=== PATIENT | male | born 1955 | race Caucasian/White ===

== ENCOUNTER 2021-02-12 11:46 | Emergency (ER) | payer OTHER ==
--- NOTE | 2021-02-12 12:33 | RAD REPORT ---
EXAM DESCRIPTION: CT - Head Brain Wo Cont - 02/12/2021 12:27 pm CLINICAL HISTORY: DIZZINESS COMPARISON: No comparisons TECHNIQUE: Axial 5 mm thick images of the head were obtained without IV contrast. All CT scans are performed using dose optimization technique as appropriate and may include automated exposure control or mA/KV adjustment according to patient size. FINDINGS: No intracranial hemorrhage, mass, edema or shift of mid-line structures. No acute cortical based infarction changes seen. No abnormal extra-axial fluid collections. Ventricles are normal. No significant atrophy. Only trace amounts of chronic ischemic change are evident on CT imaging. Mastoid air cells and visualized portions of the paranasal sinuses are clear. No acute bony findings. IMPRESSION: Negative non-contrast CT head examination for acute finding. Ongoing concerns for acute CVA can be addressed with MR imaging.
[2021-02-12] MEDS ORDERED: NA CHLORIDE 0.9% 1,000 ML ONE (13:07)
[2021-02-12 13:11] LABS: Absolute Lymphocytes (CBC) 1.1 K/uL (0.7-4.9); Basophils % 0.8 % (0-1.3); Hematocrit 46.6 % (39.6-49.0); Lymphocytes % 27.9 % (15.3-44.8); MPV 7.8 fL (7.6-11.3)
[2021-02-12] MEDS ORDERED: NA CHLORIDE 0.9% 500 ML ONE (13:14)
[2021-02-12 13:28] LABS: ALT/SGPT 46 U/L (12-78); AST/SGOT 31 U/L (15-37); Albumin 3.7 g/dL (3.4-5.0); Alkaline Phosphatase 53 U/L (45-117); BUN Blood Urea Nitrogen 16 mg/dL (7-18); Bicarbonate 25 mmol/L (21-32); Bilirubin Direct 0.1 mg/dL (0-0.2); Bilirubin Total 0.7 mg/dL (0.2-1.0); Glucose Level 103 mg/dL (74-106); Magnesium 2.3 mg/dL (1.8-2.4); NT PRO-BNP 205 pg/mL (<125); Protein, Total 7.1 g/dL (6.4-8.2); Protime INR 0.92; Sodium Level 139 mmol/L (136-145); Troponin (Emerg Dept Use Only) < 0.02 ng/mL (0.0-0.045)
[2021-02-12 13:38] LABS: Urine Blood Trace-intact (Negative); Urine Glucose Negative (Negative); Urine Protein Trace (Negative); Urine Specific Gravity 1.015 (1.005-1.030); Urine pH 7.5 (5.0-7.0)
--- NOTE | 2021-02-12 13:44 | RAD REPORT ---
EXAM DESCRIPTION: RAD - Chest Single View - 02/12/2021 1:28 pm CLINICAL HISTORY: COUGH COMPARISON: None TECHNIQUE: AP portable chest image was obtained 02/12/2021 1:28 pm . FINDINGS: No focal mass or consolidation. No significant failure or volume overload seen. Interstitial pattern is prominent mostly due to under penetrated film technique and portable imaging. Patient may have a mild fibrotic lung pattern. Minimal edema or infiltrate could be masked. Heart and vasculature are normal. No measurable pleural effusion and no pneumothorax. No acute bony abnormality seen. No acute aortic findings suspected. IMPRESSION: No acute cardiopulmonary finding identifiable.
--- NOTE | 2021-02-12 14:43 | EDPHYS ---
Physician Documentation [facility] Name: Zion Rankin Age: 65 yrs Sex: Male : 1955 Arrival Date: 02/12/2021 Time: 11:47 Bed 30 Private MD: ED Physician Turner Aguilar HPI: 02/12 14:30 This 65 yrs old Male presents to ER via Ambulatory with complaints of R/O carlos Stroke, Irregular Pulse. 14:30 The patient presents with a history of irregular heart beat. Context: The symptoms carlos occur at rest. Onset: The symptoms/episode began/occurred this morning. Duration: The patient or guardian reports a single episode, that is still ongoing. Modifying factors: The symptoms are aggravated by nothing. The symptoms are alleviated by. weak, shaky, no pain , both legs weak. Associated signs and symptoms: Pertinent positives: cough, lightheadedness. Severity of symptoms: At their worst the symptoms were mild in the emergency department the symptoms are unchanged. Historical: - Allergies: 11:54 No Known Allergies; ll1 - PMHx: 11:54 A fib; R. arthritis; Hypertensive disorder; ll1 - PSHx: 11:54 None; ll1 - Immunization history:: Client reports receiving the 2nd dose of the Covid vaccine. - Social history:: Smoking status: Patient denies any tobacco usage or history of. - Family history:: not pertinent. - Code Status:: Full code. ROS: 14:30 Constitutional: Negative for fever, chills, and weight loss, Eyes: Negative for injury, carlos pain, redness, and discharge, ENT: Negative for injury, pain, and discharge, Neck: Negative for injury, pain, and swelling, Cardiovascular: Negative for chest pain, palpitations, and edema, Respiratory: Negative for shortness of breath, cough, wheezing, and pleuritic chest pain, Abdomen/GI: Negative for abdominal pain, nausea, vomiting, diarrhea, and constipation, Back: Negative for injury and pain, : Negative for injury, bleeding, discharge, and swelling, MS/Extremity: Negative for injury and deformity, Skin: Negative for injury, rash, and discoloration, Psych: Negative for depression, anxiety, suicide ideation, homicidal ideation, and hallucinations, Allergy/Immunology: Negative for hives, rash, and allergies, Endocrine: Negative for neck swelling, polydipsia, polyuria, polyphagia, and marked weight changes, Hematologic/Lymphatic: Negative for swollen nodes, abnormal bleeding, and unusual bruising. 14:30 Neuro: Positive for weakness. Exam: 14:30 Constitutional: This is a well developed, well nourished patient who is awake, alert, carlos and in no acute distress. Head/Face: Normocephalic, atraumatic. Eyes: Pupils equal round and reactive to light, extra-ocular motions intact. Lids and lashes normal. Conjunctiva and sclera are non-icteric and not injected. Cornea within normal limits. Periorbital areas with no swelling, redness, or edema. ENT: Nares patent. No nasal discharge, no septal abnormalities noted. Tympanic membranes are normal and external auditory canals are clear. Oropharynx with no redness, swelling, or masses, exudates, or evidence of obstruction, uvula midline. Mucous membranes moist. Neck: Trachea midline, no thyromegaly or masses palpated, and no cervical lymphadenopathy. Supple, full range of motion without nuchal rigidity, or vertebral point tenderness. No Meningismus. Chest/axilla: Normal chest wall appearance and motion. Nontender with no deformity. No lesions are appreciated. Cardiovascular: Regular rate and rhythm with a normal S1 and S2. No gallops, murmurs, or rubs. Normal PMI, no JVD. No pulse deficits. Respiratory: Lungs have equal breath sounds bilaterally, clear to auscultation and percussion. No rales, rhonchi or wheezes noted. No increased work of breathing, no retractions or nasal flaring. Abdomen/GI: Soft, non-tender, with normal bowel sounds. No distension or tympany. No guarding or rebound. No evidence of tenderness throughout. Back: No spinal tenderness. No costovertebral tenderness. Full range of motion. Male : Normal genitalia with no discharge or lesions. Skin: Warm, dry with normal turgor. Normal color with no rashes, no lesions, and no evidence of cellulitis. Vital Signs: 11:52 BP 150 / 105; Pulse 117; Resp 18; Temp 98.1(O); Pulse Ox 98% ; Weight 102.06 kg; Height ll1 5 ft. 10 in. (177.80 cm); Pain 8/10; 12:14 BP 154 / 114; Pulse 110; Resp 24; Temp 98.0; Pulse Ox 97% on R/A; kh1 11:52 Body Mass Index 32.28 (102.06 kg, 177.80 cm) ll1 MDM: 12:14 Patient medically screened. [facility] 15:50 Differential diagnosis: arrythmia. Data reviewed: vital signs, nurses notes, lab test carlos result(s), EKG, radiologic studies, CT scan, plain films. Data interpreted: case monitor: rate is 89 beats/min, rhythm is atrial fibrillation, Pulse oximetry: on room air is 97 %. Test interpretation: by ED physician or midlevel provider: ECG, plain radiologic studies. Counseling: I had a detailed discussion with the patient and/or guardian regarding: the historical points, exam findings, and any diagnostic results supporting the discharge/admit diagnosis, lab results, radiology results, the need for outpatient follow up, for definitive care, a medical scheduler. 15:51 Physician consultation: Dr Kemp add elquis 5mg 2 bid x 1 week, see him in 1 week, carlos continue all other meds. 02/12 12:15 Order name: Basic Metabolic Panel; Complete Time: 14:38 [facility] 02/12 12:15 Order name: CBC with Diff; Complete Time: 14:38 [facility] 02/12 12:15 Order name: LFT's; Complete Time: 14:38 [facility] 02/12 12:15 Order name: Magnesium; Complete Time: 14:38 [facility] 02/12 12:15 Order name: NT PRO-BNP; Complete Time: 14:38 [facility] 02/12 12:15 Order name: PT-INR; Complete Time: 14:38 [facility] 02/12 12:15 Order name: Troponin (emerg Dept Use Only); Complete Time: 14:38 [facility] 02/12 12:15 Order name: XRAY Chest (1 view); Complete Time: 14:38 [facility] 02/12 12:15 Order name: TSH; Complete Time: 14:38 [facility] 02/12 12:15 Order name: CT Head Brain wo Cont; Complete Time: 14:38 [facility] 02/12 13:37 Order name: Urine Dipstick-Ancillary; Complete Time: 14:38 EDSD 02/12 14:27 Order name: SARS-COV-2 RT PCR; Complete Time: 14:38 [facility] 02/12 14:40 Order name: Digoxin; Complete Time: 15:52 [facility] 02/12 12:15 Order name: EKG; Complete Time: 12:16 [facility] 02/12 12:15 Order name: Cardiac monitoring; Complete Time: 12:48 [facility] 02/12 12:15 Order name: EKG - Nurse/Tech [facility] 02/12 12:15 Order name: IV Saline Lock; Complete Time: 12:48 [facility] 02/12 12:15 Order name: Labs collected and sent; Complete Time: 12:48 [facility] 02/12 12:15 Order name: O2 Per Protocol; Complete Time: 12:48 [facility] 02/12 12:15 Order name: O2 Sat Monitoring; Complete Time: 12:48 [facility] 02/12 12:15 Order name: Urine Dipstick-Ancillary (obtain specimen) carlos Administered Medications: 12:48 Drug: NS 0.9% 500 ml Route: IV; Rate: bolus; Site: right antecubital; [facility] 17:06 Follow up: Response: No adverse reaction; IV Status: Completed infusion kg 13:41 Drug: NS 0.9% 1000 ml Route: IV; Rate: 125 ml/hr; Site: right antecubital; 1 17:06 Follow up: Response: No adverse reaction; IV Status: Completed infusion kg 15:17 CANCELLED (Duplicate Order): Diltiazem 120 mg PO once [facility] 16:24 Drug: Lovenox (enoxaparin) 100 mg Route: Sub-Q; Site: abdomen; 1 17:06 Follow up: Response: No adverse reaction kg 16:24 Drug: Eliquis (apixaban) 5 mg Route: PO; kh1 17:05 Follow up: Response: No adverse reaction kg 16:25 Not Given (Patient Refused): Digoxin 0.25 mg IVP once 1 Disposition Summary: 02/12/21 15:53 Discharge Ordered Location: Home(02/12/21 15:53) carlos Problem: new(02/12/21 15:53) carlos Symptoms: have improved(02/12/21 15:53) carlos Condition: Stable(02/12/21 15:53) carlos Diagnosis - Weakness(02/12/21 15:53) carlos - Unspecified atrial fibrillation carlos Followup: carlos - With: Private Physician - When: 2 - 3 days - Reason: Recheck today's complaints, Continuance of care, Re-evaluation by your physician Discharge Instructions: - Discharge Summary Sheet carlos - Atrial Fibrillation carlos - Weakness carlos - Weakness, [id number] carlos - Atrial Fibrillation, [id number] carlos Forms: - Medication Reconciliation Form carlos - Thank You Letter carlos - Antibiotic Education carlos - Prescription Opioid Use carlos Prescriptions: - Eliquis 5 mg Oral tablet - take 2 tablet by ORAL route 2 times per day for 7 days; 14 tablet; Refills: 0, carlos Product Selection Permitted Signatures: Dispatcher [employer] EDMS Turner Aguilar MD MD cha Lewis, Lynsay, RN RN ll1 Yifan, Samia 1 Estephania Murrieta RN kg Corrections: (The following items were deleted from the chart) 13:24 12:16 CORONAVIRUS+MR.LAB.BRZ ordered. EDSD EDMS 15:13 14:42 Observation carlos carlos 15:13 14:42 GarveyCristina raootoniel carlos carlos 15:13 14:42 Telemetry/MedSurg (observation) carlos carlos 15:13 14:42 Fair carlos carlos 15:13 14:42 new carlos carlos 15:13 14:42 have improved carlos carlos 15:13 14:42 Standard carlos carlos 15:13 14:42 carlos carlos 15:13 14:42 Weakness carlos carlos 15:13 14:42 Paroxysmal atrial fibrillation carlos carlos 15:13 14:42 Syncope Near carlos carlos 15:13 14:42 Essential (primary) hypertension carlos carlos 15:17 14:40 Diltiazem 120 mg PO once ordered. carlos carlos
--- NOTE | 2021-02-12 14:43 | ER ---
Nurse's Notes [facility] Name: Zion Rankin Age: 65 yrs Sex: Male : 1955 Arrival Date: 02/12/2021 Time: 11:47 Bed 30 Private MD: Diagnosis: Weakness;Unspecified atrial fibrillation Presentation: 02/12 11:52 Chief complaint: Patient states: Fast HR, shaky, palpitations started at 0530 am. Went ll1 to Dr. Hernandez , was sent over for eval. Both legs feel weak. Coronavirus screen: Client denies travel out of the [place] in the last 14 days. At this time, the client does not indicate any symptoms associated with coronavirus-19. Ebola Screen: Patient denies travel to an Ebola-affected area in the 21 days before illness onset. Initial Sepsis Screen: Does the patient meet any 2 criteria? HR > 90 bpm. No. Patient's initial sepsis screen is negative. Does the patient have a suspected source of infection? No. Patient's initial sepsis screen is negative. Risk Assessment: Do you want to hurt yourself or someone else? Patient reports no desire to harm self or others. Onset of symptoms was February 12, 2021. 11:52 Method Of Arrival: Ambulatory [facility] 11:52 Acuity: SHAHEEN 2 ll1 Triage Assessment: 12:14 General: Appears in no apparent distress. Behavior is calm, cooperative. Pain: [facility] Complains of pain in back Pain does not radiate. Pain currently is 5 out of 10 on a pain scale. Cardiovascular: Reports fatigue, lightheadedness. Historical: - Allergies: 11:54 No Known Allergies; ll1 - PMHx: 11:54 A fib; R. arthritis; Hypertensive disorder; ll1 - PSHx: 11:54 None; ll1 - Immunization history:: Client reports receiving the 2nd dose of the Covid vaccine. - Social history:: Smoking status: Patient denies any tobacco usage or history of. - Family history:: not pertinent. - Code Status:: Full code. Screenin:17 Abuse screen: Denies threats or abuse. Nutritional screening: No deficits noted. [facility] Tuberculosis screening: No symptoms or risk factors identified. Fall Risk IV access (20 points). Assessment: 12:17 General: Appears in no apparent distress. Pain: Pain began gradually, 2-3 days ago. [facility] 14:00 Reassessment: Patient appears in no apparent distress at this time. No changes from [facility] previously documented assessment. Patient and/or family updated on plan of care and expected duration. Pain level reassessed. Vital Signs: 11:52 BP 150 / 105; Pulse 117; Resp 18; Temp 98.1(O); Pulse Ox 98% ; Weight 102.06 kg; Height ll1 5 ft. 10 in. (177.80 cm); Pain 8/10; 12:14 BP 154 / 114; Pulse 110; Resp 24; Temp 98.0; Pulse Ox 97% on R/A; kh1 11:52 Body Mass Index 32.28 (102.06 kg, 177.80 cm) 1 Vitals: 12:17 Cardiac Rhythm Assessment Atrial fibrillation. [facility] ED Course: 11:47 Patient arrived in ED. ds1 11:54 Triage completed. ll1 11:54 Arm band placed on. 1 12:14 Samia Saha is Primary Nurse. 1 12:14 Turner Aguilar MD is Attending Physician. [facility] 12:17 Patient has correct armband on for positive identification. Bed in low position. Call [facility] light in reach. Side rails up X 1. retail buyer on. Pulse ox on. NIBP on. 12:17 No provider procedures requiring assistance completed. Patient maintains SpO2 [facility] saturation greater than 95% on room air. 12:27 CT Head Brain wo Cont In Process Unspecified. EDMS 12:48 TSH Sent. 1 12:48 Basic Metabolic Panel Sent. 1 12:48 CBC with Diff Sent. 1 12:48 LFT's Sent. kh1 12:48 Magnesium Sent. kh1 12:49 NT PRO-BNP Sent. kh1 12:49 PT-INR Sent. kh1 12:49 Troponin (emerg Dept Use Only) Sent. 1 13:28 XRAY Chest (1 view) In Process Unspecified. EDMS 14:40 Juancarlos Garvey MD is Hospitalizing Provider. [facility] 17:08 IV discontinued, intact, bleeding controlled, No redness/swelling at site. Pressure kg dressing applied. Administered Medications: 12:48 Drug: NS 0.9% 500 ml Route: IV; Rate: bolus; Site: right antecubital; kh1 17:06 Follow up: Response: No adverse reaction; IV Status: Completed infusion kg 13:41 Drug: NS 0.9% 1000 ml Route: IV; Rate: 125 ml/hr; Site: right antecubital; kh1 17:06 Follow up: Response: No adverse reaction; IV Status: Completed infusion kg 15:17 CANCELLED (Duplicate Order): Diltiazem 120 mg PO once carlos 16:24 Drug: Lovenox (enoxaparin) 100 mg Route: Sub-Q; Site: abdomen; kh1 17:06 Follow up: Response: No adverse reaction kg 16:24 Drug: Eliquis (apixaban) 5 mg Route: PO; kh1 17:05 Follow up: Response: No adverse reaction kg 16:25 Not Given (Patient Refused): Digoxin 0.25 mg IVP once kh1 Outcome: 14:42 Decision to Hospitalize by Provider. carlos 15:53 Discharge ordered by MD. carlos 17:07 Discharged to home ambulatory, with family. kg 17:07 Condition: good 17:07 Discharge instructions given to patient, family, Instructed on discharge instructions, follow up and referral plans. Demonstrated understanding of instructions, follow-up care, medications, Prescriptions given X 1. 17:08 Patient left the ED. kg Signatures: Dispatcher [employer] EDMS Turner Augilar MD MD cha Sanford, Demi ds1 Hugo Zuniga, RN RN ll1 Estephania Murrieta RN RN kg Samia Saha [facility] Corrections: (The following items were deleted from the chart) 13:24 12:47 CORONAVIRUS+MR.LAB.BRZ drawn and sent. [facility] EDNC
[2021-02-12] MEDS ORDERED: ENOXAPARIN 100 MG/ML SYR SQ ONE (16:43)
[2021-02-12] MEDS ORDERED: APIXABAN 5 MG TABLET ONE (16:43)
[2021-02-12 17:25] VITALS: BP 154/114; TEMP 98; O2SAT 97
--- NOTE | 2021-02-13 11:28 | EKG ---
Test Date: 2021-02-12 Test Time: 14:33:54 Vendor Quality Supervisor: TARIK MEASUREMENT RESULTS: Intervals: Rate: 89 NE: QRSD: 86 QT: 356 QTc: 433 [place]: P: NE: QRS: 28 T: 44 INTERPRETIVE STATEMENTS: Atrial fibrillation Abnormal ECG Compared to ECG 03/16/2005 10:28:00 Sinus rhythm no longer present Electronically Signed On 02-13-21 11:26:42 CDT by Andres Kim
== END 2021-02-12 17:08 | disposition home or self-care (01) ==
LOC: ER 11:46
DX: I48.91 Unspecified atrial fibrillation (principal); I10 Essential (primary) hypertension; Z20.822 Contact with and (suspected) exposure to COVID-19
CPT/HCPCS: 96361; 93005; 85025; 80048; 36415; 83735; 85610; 80162; 80076; 84443; 81003; 84484; 83880; 70450; 71045; 96360; 96372; 99285; U0003; J1650; J7040; J7030

== ENCOUNTER 2025-03-30 05:25 | Emergency (ER) | payer OTHER ==
[2025-03-30] MEDS ORDERED: NA CHLORIDE 0.9% 500 ML ONE (05:44)
[2025-03-30] MEDS ORDERED: MAGNESIUM SULFATE 1 gm IVPB 1 GM/100 ML BAG IV ONE (05:45)
[2025-03-30 06:07] LABS: Absolute Lymphocytes (CBC) 1.2 K/uL (0.7-4.9); Hematocrit 45.7 % (39.6-49.0); Hemoglobin 14.9 g/dL (13.6-17.9); MCH 25.9 pg (27.0-35.0); MCHC 32.6 g/dL (32.0-36.0); MCV 79.3 fL (80-100); MPV 7.8 fL (7.6-11.3); Nucleated RBC Absolute Count 0.0 (0-0); Nucleated Red Blood Cells % 0.1 % (0-0); RBC Red Blood Cell Count 5.77 M/uL (4.33-5.43); White Blood Count 7.60 thou/uL (4.3-10.9)
[2025-03-30 06:14] LABS: PT Prothrombin Time 13.2 SECONDS (10-13.0); Protime INR 1.17
[2025-03-30 06:26] LABS: Anion Gap 13.0 mEq/L (5.0-15.0); BUN Blood Urea Nitrogen 26.0 mg/dL (7-18); Glucose Level 193.0 mg/dL (74-106); NT PRO-BNP 989.0 pg/mL (<125); Potassium 4.0 mEq/L (3.5-5.1); Troponin High Sensitivity 5.6 pg/mL (<58.9)
--- NOTE | 2025-03-30 06:45 | EDPHYS ---
Physician Documentation [facility] Name: Zion Rankin Age: 69 yrs Sex: Male : 1955 Arrival Date: 03/30/2025 Time: 05:25 Bed 7 Private MD: ED Physician Alejandro Dejesus HPI: 03/30 05:48 This 69 yrs old Male presents to ER via Unassigned with complaints of High Blood rn Pressure, Dizziness. 05:48 Patient reports sudden onset of heart racing and palpitations associated with dizziness rn and lightheadedness. Has history of atrial fibrillation. States takes diltiazem and Eliquis. Patient reports feels similar to other episodes of A-fib. States has been shocked before but did not last long. No recent changes in type of medication but states diltiazem was recently dropped in dosage a few weeks ago.. Historical: - Allergies: 06:22 No Known Allergies; bm8 - Home Meds: 06:22 Unable to obtain [Active]; bm8 - PMHx: 06:22 a fib; Hypertensive disorder; R. arthritis; bm8 - PSHx: 06:22 None; bm8 - Immunization history:: Adult Immunizations up to date. - Infectious Disease History:: Denies. - Family history:: not pertinent. - Social history:: Smoking status: Patient reports use of chewing tobacco. Patient/guardian denies using alcohol, street drugs. - Hospitalizations: : No recent hospitalization is reported. ROS: 05:48 Constitutional: Negative for fever, chills, and weight loss, Cardiovascular: Positive rn for heart racing and palpitations Respiratory: Negative for shortness of breath, cough, wheezing, and pleuritic chest pain, Abdomen/GI: Negative for abdominal pain, nausea, vomiting, diarrhea, and constipation, MS/Extremity: Negative for injury and deformity, Skin: Negative for injury, rash, and discoloration, Neuro: Positive for dizziness Exam: 05:48 Constitutional: This is a well developed, well nourished patient who is awake, alert, rn and in no acute distress. Cardiovascular: Tachycardic, irregularly irregular Respiratory: No increased work of breathing, no retractions or nasal flaring. Abdomen/GI: Soft, non-tender MS/ Extremity: Pulses equal, no cyanosis. Neuro: Awake and alert, GCS 15 05:52 ECG was reviewed by the Attending Physician. rn Vital Signs: 05:42 Weight 100.7 kg; vc1 05:43 BP 158 / 102; Pulse 110; rn 06:21 BP 148 / 92; Pulse 77; Resp 13; Temp 97.9; Pulse Ox 99% ; Pain 0/10; bm8 06:54 BP 147 / 99; Pulse 77; Resp 18; Temp 98; Pulse Ox 99% ; Pain 0/10; bm8 06:21 Pain Scale: Adult bm8 06:54 Pain Scale: Adult bm8 Fabiano Coma Score: 06:06 Eye Response: spontaneous(4). Motor Response: obeys commands(6). Verbal Response: bm8 oriented(5). Total: 15. MDM: 05:29 Medical Screening Exam initiated rn 06:41 Differential diagnosis: Atrial fibrillation with rapid ventricular rate. Data reviewed: rn vital signs, nurses notes, lab test result(s), EKG, radiologic studies, plain films, and as a result, I will discharge patient. Independent interpretation of the following test(s) in the Emergency Department EKG: See my EKG interpretation above X-Ray: My interpretation is Chest x-ray image negative for pneumonia or pneumothorax per my interpretation. monitor car operator: rate is 77 beats/min, Rhythm is atrial fibrillation, with no ectopy, Interpretation: atrial fibrillation. Care significantly affected by the following chronic conditions: Hypertension and atrial fibrillation. Counseling: I had a detailed discussion with the patient and/or guardian regarding the historical points, exam findings, and any diagnostic results supporting the discharge/admit diagnosis, lab results, radiology results, the need for outpatient follow up, to return to the emergency department if symptoms worsen or persist or if there are any questions or concerns that arise at home. Response to treatment: the patient's symptoms have markedly improved after treatment, the patient's condition has returned to base line, the patient is now symptom free, and as a result, I will discharge patient. Special discussion: I discussed with the patient/guardian in detail that at this point there is no indication for admission to the hospital. It is understood, however, that if the symptoms persist or worsen the patient needs to return immediately for re-evaluation. Based on the history and exam findings, there is no indication for further emergent testing or inpatient evaluation. I discussed with the patient/guardian the need to see the blow molder for further evaluation of the symptoms. 06:42 ED course: Patient reports feeling back to baseline. Stays in A-fib per patient, never rn gets out of it. Patient states 3 or 4 recent ER visits for identical problem, given medication, and discharged in the emergency room successfully. Patient states has 2 appointments with his blow molder coming up. Patient does not want to be admitted and wants to be discharged.. 03/30 05:43 Order name: Basic Metabolic Panel; Complete Time: 06:32 rn 03/30 05:43 Order name: CBC with Diff; Complete Time: 06:15 rn 03/30 05:43 Order name: NT PRO-BNP; Complete Time: 06:32 rn 03/30 05:43 Order name: PT-INR; Complete Time: 06:15 rn 03/30 05:43 Order name: Troponin HS; Complete Time: 06:32 rn 03/30 05:43 Order name: XRAY Chest (1 view) rn 03/30 05:43 Order name: Cardiac monitoring; Complete Time: 05:54 rn 03/30 05:43 Order name: EKG - Nurse/Tech; Complete Time: 05:54 rn 03/30 05:43 Order name: IV Saline Lock; Complete Time: 05:54 rn 03/30 05:43 Order name: Labs collected and sent; Complete Time: :54 rn 03/30 05:43 Order name: O2 Per Protocol; Complete Time: 05:54 rn 03/30 05:43 Order name: O2 Sat Monitoring; Complete Time: 05:54 rn EC:52 Rate is 105 beats/min. Rhythm is irregularly irregular. QRS interval is normal. QT rn interval is normal. No Q waves. T waves are Normal. No ST changes noted. Clinical impression: Atrial Fibrillation. Interpreted by me. Reviewed by me. Administered Medications: 05:53 Drug: Magnesium Sulfate IVPB 1 grams IVPB once over 1 hrs Route: IVPB; Infused Over: 1 bm8 hrs; Site: right antecubital; 06:55 Follow up: Response: No adverse reaction; IV Status: Completed infusion bm8 05:53 Drug: NS 0.9% IV 500 ml 500 ml IV at 1 bolus once; to be given as a bolus over 30 bm8 minutes Volume: 500 ml; Route: IV; Rate: 1 bolus; Site: right antecubital; 06:45 Follow up: IV Status: Completed infusion; IV Intake: 500ml nh2 06:55 Follow up: Response: No adverse reaction; IV Status: Completed infusion bm8 05:53 Drug: Diltiazem IVP 20 mg IVP once; Over 2 Minutes Route: IVP; Site: right antecubital; bm8 06:45 Follow up: Response: No adverse reaction nh2 06:54 Follow up: Response: No adverse reaction bm8 Disposition Summary: 03/30/25 06:44 Discharge Ordered Notes: Location: Home rn Problem: an acute exacerbation rn Symptoms: have improved rn Condition: Stable rn Diagnosis - Persistent atrial fibrillation - with rapid ventricular rate rn Followup: rn - With: Private Physician - When: As needed - Reason: Recheck today's complaints, Re-evaluation by your physician Discharge Instructions: - Discharge Summary Sheet rn - Atrial Fibrillation rn Forms: - Medication Reconciliation Form rn - Antibiotic rn surgical - Prescription Opioid Use rn - Patient Portal Instructions rn - Leadership Thank You Letter furniture removalist time excluding procedures: 06:42 Critical care time: Bedside Care: 35 minutes. Total time: 35 minutes rn Signatures: Dispatcher [employer] EDMS Alejandro Dejesus MD MD rn McDonald, Brad, RN RN bm8 Kirill Newby Jr, RN nh2 Corrections: (The following items were deleted from the chart) 05:43 05:43 BASIC METABOLIC PANEL+C.LAB.BRZ ordered. EDMS EDMS 05:43 05:43 CBC+H.LAB.BRZ ordered. EDMS EDMS 05:43 05:43 PROBNP+C.LAB.BRZ ordered. EDMS EDMS 05:43 05:43 PROTIME (+INR)+COAG.LAB.BRZ ordered. EDMS EDMS 05:43 05:43 Troponin High Sensitivity+C.LAB.BRZ ordered. EDMS EDMS 05:43 05:43 Chest Single View+RAD.RAD.BRZ ordered. EDMS EDMS
--- NOTE | 2025-03-30 06:45 | ER ---
Nurse's Notes [facility] Name: Zion Rankin Age: 69 yrs Sex: Male : 1955 Arrival Date: 03/30/2025 Time: 05:25 Bed 7 Private MD: Diagnosis: Persistent atrial fibrillation-with rapid ventricular rate Presentation: 03/30 05:29 Chief complaint: Patient states: I woke this morning and felt like a weird whoosh go bm8 over, now I am having palpatations. 05:29 Coronavirus screen: At this time, the client does not indicate any symptoms associated bm8 with coronavirus-19. Ebola Screen: Patient negative for fever greater than or equal to 101.5 degrees Fahrenheit, and additional compatible Ebola Virus Disease symptoms Patient denies exposure to infectious person. Patient denies travel to an Ebola-affected area in the 21 days before illness onset. No symptoms or risks identified at this time. Initial Sepsis Screen: Does the patient meet any 2 criteria? No. Patient's initial sepsis screen is negative. Does the patient have a suspected source of infection? No. Patient's initial sepsis screen is negative. Risk Assessment: Do you want to hurt yourself or someone else? Patient reports no desire to harm self or others. Onset of symptoms was March 30, 2025 at 04:15. 05:29 Method Of Arrival: Ambulatory bm8 05:29 Acuity: SHAHEEN 2 bm8 Triage Assessment: 06:05 General: Appears in no apparent distress. comfortable, Behavior is calm, cooperative, bm8 appropriate for age. Pain: Denies pain. EENT: No deficits noted. No signs and/or symptoms were reported regarding the EENT system. Neuro: No deficits noted. Level of Consciousness is awake, alert, obeys commands, Oriented to person, place, time, situation, Appropriate for age. Cardiovascular: Reports palpitations, Denies chest pain, Heart tones S1 S2 present Capillary refill < 3 seconds in bilateral fingers Patient's skin is warm and dry. Respiratory: Airway is patent Respiratory effort is even, unlabored, Respiratory pattern is regular, symmetrical, Breath sounds are clear bilaterally. GI: No deficits noted. No signs and/or symptoms were reported involving the gastrointestinal system. : No deficits noted. No signs and/or symptoms were reported regarding the genitourinary system. Derm: No deficits noted. No signs and/or symptoms reported regarding the dermatologic system. Musculoskeletal: No deficits noted. No signs and/or symptoms reported regarding the musculoskeletal system. Historical: - Allergies: 06:22 No Known Allergies; bm8 - Home Meds: :22 Unable to obtain [Active]; bm8 - PMHx: 06:22 a fib; Hypertensive disorder; R. arthritis; bm8 - PSHx: 06:22 None; bm8 - Immunization history:: Adult Immunizations up to date. - Infectious Disease History:: Denies. - Family history:: not pertinent. - Social history:: Smoking status: Patient reports use of chewing tobacco. Patient/guardian denies using alcohol, street drugs. - Hospitalizations: : No recent hospitalization is reported. Screenin:06 [facility] ED Fall Risk Assessment (Adult) History of falling in the last 3 months, bm8 including since admission No falls in past 3 months (0 pts) Confusion or Disorientation No (0 pts) Intoxicated or Sedated No (0 pts) Impaired Gait No (0 pts) Mobility Assist Device Used No (0 pt) Altered Elimination No (0 pt) Score/Fall Risk Level 0 - 2 = Low Risk Oriented to surroundings, Maintained a safe environment, Educated pt \T\ family on fall prevention, incl call for assistance when getting out of bed, Assessed \T\ reinforced patient's understanding of fall precautions, Hourly rounding (assess needs \T\ fall precautionary measures) done, Used ambulatory aids as needed (educated on \T\ assisted with), Used gait belt as appropriate. Abuse screen: Denies threats or abuse. Nutritional screening: No deficits noted. Tuberculosis screening: No symptoms or risk factors identified. Assessment: 06:06 Reassessment: see triage assessment. bm8 06:45 Reassessment: Patient and/or family updated on plan of care and expected duration. Pain nh2 level reassessed. Patient is alert, oriented x 3, equal unlabored respirations, skin warm/dry/pink. Patient denies pain at this time. Neuro: Level of Consciousness is awake, alert, Oriented to person, place, time, situation, Denies dizziness, headache. Cardiovascular: Patient's skin is warm and dry. Rhythm is atrial flutter. Respiratory: Respiratory effort is even, unlabored, Breath sounds are clear bilaterally. Vital Signs: 05:42 Weight 100.7 kg; vc1 05:43 BP 158 / 102; Pulse 110; rn 06:21 BP 148 / 92; Pulse 77; Resp 13; Temp 97.9; Pulse Ox 99% ; Pain 0/10; bm8 06:54 BP 147 / 99; Pulse 77; Resp 18; Temp 98; Pulse Ox 99% ; Pain 0/10; bm8 06:21 Pain Scale: Adult bm8 06:54 Pain Scale: Adult bm8 Fabiano Coma Score: 06:06 Eye Response: spontaneous(4). Motor Response: obeys commands(6). Verbal Response: bm8 oriented(5). Total: 15. ED Course: 05:28 Patient arrived in ED. gm2 05:28 Alejandro Dejesus MD is Attending Physician. rn 06:05 Arm band placed on right wrist. bm8 06:05 Provided Education on: care plan for today's visit. nh2 06:06 Patient has correct armband on for positive identification. Bed in low position. Call bm8 light in reach. Side rails up X 1. Client placed on continuous cardiac and pulse oximetry monitoring. NIBP monitoring applied. hall monitor on. Pulse ox on. NIBP on. Door closed. Noise minimized. Pillow given. Verbal reassurance given. Head of bed elevated. 06:06 No provider procedures requiring assistance completed. Initial lab(s) drawn, by ED bm8 staff, sent to lab. Inserted saline lock: 18 gauge in right antecubital area, using aseptic technique. Blood collected. Flushed with 10 mL NS. Patient maintains SpO2 saturation greater than 95% on room air. 06:06 EKG done, by ED staff, reviewed by Alejandro Dejesus MD. nh2 06:16 XRAY Chest (1 view) In Process Unspecified. EDMS 06:22 Triage completed. bm8 06:45 EKG done, by ED staff, reviewed by Alejandro Dejesus MD. nh2 06:54 Sincere Brewer, RN is Primary Nurse. bm8 06:54 IV discontinued, intact, bleeding controlled, No redness/swelling at site. Pressure bm8 dressing applied. Administered Medications: 05:53 Drug: Magnesium Sulfate IVPB 1 grams IVPB once over 1 hrs Route: IVPB; Infused Over: 1 bm8 hrs; Site: right antecubital; 06:55 Follow up: Response: No adverse reaction; IV Status: Completed infusion bm8 05:53 Drug: NS 0.9% IV 500 ml 500 ml IV at 1 bolus once; to be given as a bolus over 30 bm8 minutes Volume: 500 ml; Route: IV; Rate: 1 bolus; Site: right antecubital; 06:45 Follow up: IV Status: Completed infusion; IV Intake: 500ml nh2 06:55 Follow up: Response: No adverse reaction; IV Status: Completed infusion bm8 05:53 Drug: Diltiazem IVP 20 mg IVP once; Over 2 Minutes Route: IVP; Site: right antecubital; bm8 06:45 Follow up: Response: No adverse reaction nh2 06:54 Follow up: Response: No adverse reaction bm8 Medication: 06:06 VIS not applicable for this client. bm8 Intake: 06:45 IV: 500ml; Total: 500ml. nh2 Outcome: 06:44 Discharge ordered by . rn 06:54 Discharged to home ambulatory, bm8 06:54 Condition: stable 06:54 Discharge instructions given to patient, Instructed on discharge instructions, follow up and referral plans. no drinking with medication, no driving heavy equipment, medication usage, safety practices, Demonstrated understanding of instructions, follow-up care, medications, 06:58 Patient left the ED. nh2 Signatures: Dispatcher [employer] EDMS Alejandro Dejesus MD MD rn Calcote, Vanessa RN RN vc1 Azul Perry 2 Sincere Brewer RN RN bm8 Kirill Newby Jr RN RN nh2
[2025-03-30 07:05] VITALS: O2SAT 99
[2025-03-30 07:07] VITALS: BP 147/99; TEMP 98
--- NOTE | 2025-03-30 07:45 | RAD REPORT ---
EXAMINATION: ONE VIEW CHEST XR CLINICAL INDICATION: DYSPNEA TECHNIQUE: Frontal chest projection is submitted. Examination is limited by patient positioning and t echnique. COMPARISON: 02/12/2021 FINDINGS: The lungs are well inflated and clear. The heart is upper limit of normal in size. No displaced fract ures identified. IMPRESSION: No acute intrathoracic abnormalities.
== END 2025-03-30 06:58 | disposition home or self-care (01) ==
LOC: ER 05:25
DX: I48.19 Other persistent atrial fibrillation (principal); I10 Essential (primary) hypertension; F17.220 Nicotine dependence, chewing tobacco, uncomplicated
CPT/HCPCS: 96365; 93005 ×2; 85025; 80048; 36415; 85610; 84484; 83880; 71045; 96375; 99285; J3475; J7040